=== PATIENT | female | born 1990 | race Caucasian/White ===

== ENCOUNTER 2022-05-14 21:06 | Inpatient (IN) | payer OTHER, SELFPAY ==
[~2022-05-14 21:06] MED LIST: Bupivacaine/Epinephrine 0.25% 30 ML VIAL ONE
[2022-05-14] MEDS ORDERED: Methylergonovine 0.2 MG/ML VIAL IM PRN (21:30)
[2022-05-14] MEDS ORDERED: Butorphanol Tartrate 1 MG/ML VIAL SLOW IVP PRN (21:30)
[2022-05-14] MEDS ORDERED: Carboprost 250 MCG/ML AMP IM PRN (21:30)
[2022-05-14] MEDS ORDERED: Lidocaine 1% (PF) 30 ML VIAL SC PRN (21:30)
[2022-05-14] MEDS ORDERED: hydrALAZINE 20 MG/ML VIAL SLOW IVP PRN (21:30)
[2022-05-14] MEDS ORDERED: Acetaminophen 500 MG TAB PO PRN (21:30)
[2022-05-14] MEDS ORDERED: Ondansetron PF 4 MG/2 ML Vial IVP PRN ×2 (21:30→22:52)
[2022-05-14] MEDS ORDERED: Promethazine HCl 25 MG/ML VIAL IM PRN ×2 (21:30→22:52)
[2022-05-14] MEDS ORDERED: Misoprostol 200 MCG TAB PR PRN (21:30)
[2022-05-14] MEDS ORDERED: NS w/ Oxytocin 30 units 500 ML ONE (21:35)
[2022-05-14] MEDS ORDERED: Lidocaine 1% (PF) 30 ML VIAL ONE (21:35)
[2022-05-14] MEDS ORDERED: Fentanyl 2 mcg/Bup 0.1% Cadd 100 ML ONE (21:38)
[2022-05-14 22:08] VITALS: BMI 31.6
[2022-05-14 22:14] LABS: Hemoglobin 13.1 g/dL (12.0-15.5); Mean Corpuscular HGB CONC 34.7 g/dL (32.0-36.0); Mean Corpuscular Hemoglobin 32.4 pg (27.0-33.0); Mean Corpuscular Volume 93.3 fl (81.6-98.3); Mean Platelet Volume 10.9 fl (7.4-10.4); Platelet Count 187 10x3/uL (150-450); RBC Distribution Width 12.9 % (11.5-14.5); Red Blood Cell (RBC) Count 4.04 10x6/uL (3.90-5.03); White Blood Cell (WBC) Count 13.5 10x3/uL (3.5-10.5)
[2022-05-14] MEDS ORDERED: NS w/ Oxytocin 30 units 500 ML IV SCH (22:30)
[2022-05-14] MEDS ORDERED: Lactated Ringer's 1,000 ML IV SCH (22:30)
[2022-05-14 22:49] LABS: Syphilis Antibody Nonreactive (Nonreactive); Syphilis Antibody Index 0.05 S/CO (<1.00 Non-Reactive)
[2022-05-14 22:50] LABS: HBSAg Index 0.15 S/CO (0-0.99); Hep B Surf Ag Non-Reactive S/CO (NonReactive)
[2022-05-14] MEDS ORDERED: ePHEDrine Sulfate 50 MG/10 ML VIAL SLOW IVP PRN (22:52)
[2022-05-14] MEDS ORDERED: Moisturizing Cream (Eucerin) 113 GM JAR TOP PRN (22:52)
[2022-05-14] MEDS ORDERED: Naloxone HCl 0.4 mg/ml Vial IVP PRN ×2 (22:52)
[2022-05-14] MEDS ORDERED: Lactated Ringer's 500 ML IV PRN (22:52)
[2022-05-14] MEDS ORDERED: Acetaminophen 325 MG TAB PO PRN (22:52)
[2022-05-14] MEDS ORDERED: diphenhydrAMINE 50 MG/ML VIAL IVP PRN (22:52)
[2022-05-14] MEDS ORDERED: Communication Order-Pharmacy FS SCH (23:00)
[2022-05-14] MEDS ORDERED: Fentanyl 2 mcg/Bupivacaine 0.1% Cassette 100 ML EPIDURAL SCH (23:00)
[2022-05-14] MEDS ORDERED: Oxytocin 10 UNITS/ML VIAL ONE (23:40)
[2022-05-15] MEDS ORDERED: Methylergonovine 0.2 MG/ML VIAL IM PRN (03:00)
[2022-05-15] MEDS ORDERED: Milk Of Magnesia 30 ML UDCUP PO PRN (03:00)
[2022-05-15] MEDS ORDERED: hydrALAZINE 20 MG/ML VIAL SLOW IVP PRN (03:00)
[2022-05-15] MEDS ORDERED: NS w/ Oxytocin 30 units 500 ML IV SCH (03:00)
[2022-05-15] MEDS ORDERED: Misoprostol 200 MCG TAB VAG PRN (03:00)
[2022-05-15] MEDS ORDERED: Boostrix 0.5 ML (Tdap) VIAL (>/=7 yrs of age) IM ONE (03:00)
[2022-05-15] MEDS ORDERED: Bisacodyl 10 MG SUPP PR PRN (03:00)
[2022-05-15] MEDS ORDERED: HYDROcodone/Acetaminophen 5/325 mg Tablet PO PRN ×2 (03:00)
[2022-05-15] MEDS ORDERED: Benzocaine-Menthol 82.5 ML CAN TOP PRN (03:00)
[2022-05-15] MEDS: Ibuprofen 800 MG TAB PO SCH ×3 (04:07→21:51)
[2022-05-15] MEDS: Prenatal Vitamin 1 TAB PO SCH (07:56)
[2022-05-15] MEDS: Ferrous Sulfate 325 MG TAB PO SCH ×2 (07:57→15:03)
[2022-05-15] MEDS: Docusate 100 MG CAP PO SCH ×2 (07:57→21:51)
[2022-05-16] MEDS: Ibuprofen 800 MG TAB PO SCH (05:49)
[2022-05-16 07:56] VITALS: BP 99/56; TEMP 98.3
[2022-05-16] MEDS: Ferrous Sulfate 325 MG TAB PO SCH (08:39)
[2022-05-16] MEDS: Prenatal Vitamin 1 TAB PO SCH (08:39)
[2022-05-16] MEDS: Docusate 100 MG CAP PO SCH (08:39)
== END 2022-05-16 09:45 | disposition home or self-care (01) | DRG 807 ==
LOC: CSHLD/OP 21:06 → CSHLD 22:06 → CSHPP 05-15 02:47
PROVIDERS: ADMIT Obstetrics & Gynecology; ATTEND Obstetrics & Gynecology
PROC: 0KQM0ZZ Repair Perineum Muscle, Open Approach (ICD-10-PCS; principal; 2022-05-15)
PROC: 10E0XZZ Delivery of Products of Conception, External Approach (ICD-10-PCS; 2022-05-15)
DX: O70.1 Second degree perineal laceration during delivery (principal); Z37.0 Single live birth; Z3A.39 39 weeks gestation of pregnancy; Z20.822 Contact with and (suspected) exposure to COVID-19
CPT/HCPCS: 36415; 85027; 86780; 86850; 86900; 86901; 87340; 99285; J2001; J2590